=== PATIENT | male | born 1990 | race Two or more races ===

== ENCOUNTER 2024-10-10 22:23 | Emergency (ER) | payer MEDICAID, OTHER ==
[~2024-10-10] VITALS: Ht 177.8 cm; Wt 86.2 kg
[2024-10-10 23:49] VITALS: BP 125/81; TEMP 98; O2SAT 96
== END 2024-10-11 00:10 | disposition home or self-care (01) ==
LOC: ER 22:26
DX: F19.10 Other psychoactive substance abuse, uncomplicated (principal); F17.200 Nicotine dependence, unspecified, uncomplicated
CPT/HCPCS: 98960

== ENCOUNTER 2024-10-11 10:14 | Emergency (ER) | payer MEDICAID ==
[~2024-10-11] VITALS: Ht 180.3 cm; Wt 86.2 kg
[2024-10-11 11:52] VITALS: BP 124/75; TEMP 97.9; O2SAT 98
== END 2024-10-11 11:52 | disposition home or self-care (01) ==
LOC: ER 10:21
DX: F19.10 Other psychoactive substance abuse, uncomplicated (principal); F17.200 Nicotine dependence, unspecified, uncomplicated; Z59.00 Homelessness unspecified